=== PATIENT | female | born 1975 | race Caucasian/White ===

== ENCOUNTER 2018-03-09 10:22 | Inpatient (IN) | payer BC ==
[~2018-03-09] VITALS: Ht 154.9 cm; Wt 62.6 kg
[2018-03-09 10:22] VITALS: BP_SYST 142
[2018-03-09] MEDS ORDERED: NITROGLYCERIN 1 INCH (GM) OINT. TD ONE (10:45)
[2018-03-09 11:02] LABS: BASOPHILS # (AUTO) 0.1 K/uL (0.0-0.2); BASOPHILS % (AUTO) 1.3 % (0.0-2.0); EOSINOPHILS # (AUTO) 0.1 K/uL (0.0-0.4); EOSINOPHILS % (AUTO) 1.6 % (0.0-4.0); HEMATOCRIT 33.9 % (36-48); HEMOGLOBIN 11.3 g/dL (12.0-16.0); LYMPHOCYTES # (AUTO) 1.5 K/uL (1.0-5.5); LYMPHOCYTES % (AUTO) 33.5 % (20.5-51.5); MEAN CORPUSCULAR HEMOGLOBIN 30 pg (27-31); MEAN CORPUSCULAR HGB CONC 33 % (32-36); MEAN CORPUSCULAR VOLUME 89 fL (79.0-98.0); MONOCYTES # (AUTO) 0.2 K/uL (0.0-1.0); MONOCYTES % (AUTO) 5.2 % (1.7-9.3); NEUTROPHILS # (AUTO) 2.6 K/uL (1.8-7.7); NEUTROPHILS % (AUTO) 58.4 % (40.0-70.0); PLATELET COUNT (AUTO) 325 K/uL (130-430); RED CELL DISTRIBUTION WIDTH 12.3 % (9.0-15.0); WHITE BLOOD COUNT (AUTO) 4.5 K/uL (4.8-10.8)
[2018-03-09 11:10] LABS: PROTHROMBIN TIME 9.8 SECS (9.5-12.5)
[2018-03-09 11:12] LABS: ALBUMIN 3.6 g/dL (3.4-4.8); CALCIUM 8.9 mg/dL (8.4-11.0); CREATININE 0.53 mg/dL (0.55-1.30); POTASSIUM 3.8 mmol/L (3.5-5.1); TOTAL BILIRUBIN 0.2 mg/dL (0.0-1.0)
[2018-03-09] MEDS ORDERED: ACETAMINOPHEN 500 MG TABLET PO ONE (11:45)
[2018-03-09 14:35] VITALS: BP_SYST 126
[2018-03-09] MEDS ORDERED: MAG-AL HYDROX/SIMETH 30 ML UDC PO ONE (15:30)
[2018-03-09] MEDS ORDERED: PANTOPRAZOLE SODIUM 40 MG TAB PO ONE (15:30)
[2018-03-09] MEDS ORDERED: MAG-AL HYDROX/SIMETH 30 ML UDC PO PRN (15:30)
[2018-03-09] MEDS ORDERED: traMADol HCL HCL 50 MG TABLET (ULTRAM) PO PRN (15:45)
[2018-03-09 16:10] VITALS: BP_SYST 130
[2018-03-09 19:30] VITALS: BP_SYST 108
[2018-03-09] MEDS ORDERED: ONDANSETRON HCL 4 MG/2 ML VIAL IVP PRN (20:45)
[2018-03-09] MEDS ORDERED: ONDANSETRON HCL 4 MG/2 ML VIAL ONE (20:49)
[2018-03-10] VITALS: BP_SYST 110
[2018-03-10 06:45] LABS: BASOPHILS # (AUTO) 0.1 K/uL (0.0-0.2); BASOPHILS % (AUTO) 1.2 % (0.0-2.0); EOSINOPHILS # (AUTO) 0.1 K/uL (0.0-0.4); EOSINOPHILS % (AUTO) 0.7 % (0.0-4.0); HEMATOCRIT 31.7 % (36-48); HEMOGLOBIN 10.6 g/dL (12.0-16.0); LYMPHOCYTES # (AUTO) 1.8 K/uL (1.0-5.5); LYMPHOCYTES % (AUTO) 20.9 % (20.5-51.5); MEAN CORPUSCULAR HEMOGLOBIN 30 pg (27-31); MEAN CORPUSCULAR HGB CONC 33 % (32-36); MEAN CORPUSCULAR VOLUME 89 fL (79.0-98.0); MONOCYTES # (AUTO) 0.3 K/uL (0.0-1.0); MONOCYTES % (AUTO) 3.8 % (1.7-9.3); NEUTROPHILS # (AUTO) 6.3 K/uL (1.8-7.7); NEUTROPHILS % (AUTO) 73.4 % (40.0-70.0); PLATELET COUNT (AUTO) 293 K/uL (130-430); RED BLOOD CELL COUNT(AUTO) 3.57 MIL/uL (4.2-6.2); RED CELL DISTRIBUTION WIDTH 12.4 % (9.0-15.0); WHITE BLOOD COUNT (AUTO) 8.6 K/uL (4.8-10.8)
[2018-03-10 06:55] LABS: ANION GAP 3 (5-15); CALCIUM 8.8 mg/dL (8.4-11.0); CHLORIDE 105 mmol/L (98-107); GLUCOSE 92 mg/dL (70-99); POTASSIUM 3.8 mmol/L (3.5-5.1); SODIUM SERUM 140 mmol/L (136-145); UREA NITROGEN, BLOOD 9 mg/dL (8-21)
[2018-03-10 06:57] LABS: GFR AFRICAN AMERICAN 117 mL/min (>90)
[2018-03-10 07:09] LABS: ALANINE AMINOTRANSFERASE 22 U/L (12-78); ALBUMIN 3.4 g/dL (3.4-4.8); ASPARTATE AMINOTRANSFERASE 17 U/L (10-37); THYROID STIMULATING HORMONE 2.05 uIu/mL (0.36-3.74); TOTAL BILIRUBIN 0.4 mg/dL (0.0-1.0)
[2018-03-10 07:28] LABS: BILIRUBIN,URINE NEGATIVE (NEGATIVE); BLOOD, URINE NEGATIVE (NEGATIVE); CLARITY/URINE CLEAR (CLEAR); COLOR,URINE YELLOW (YELLOW); GLUCOSE,URINE NEGATIVE (NEGATIVE); KETONES,URINE NEGATIVE (NEGATIVE); LEUKOCYTE ESTERASE ,URINE NEGATIVE (NEGATIVE); NITRITE, URINE NEGATIVE (NEGATIVE); PROTEIN URINE TRACE (NEGATIVE)
[2018-03-10 07:37] LABS: CHOLESTEROL 179 mg/dL (<200); HDL CHOLESTEROL 53 mg/dL (>55); LDL CHOLESTEROL 115 mg/dL (<100); TRIGLYCERIDES 73 mg/dL (30-150)
[2018-03-10 07:46] VITALS: BP_SYST 95
[2018-03-10] MEDS ORDERED: PANTOPRAZOLE SODIUM 40 MG TAB PO SCH (09:00)
[2018-03-10 11:39] VITALS: BP_SYST 103
[2018-03-10] MEDS ORDERED: FAMO-132 PO (11:58)
[2018-03-10 12:42] VITALS: BP_SYST 103
== END 2018-03-10 15:10 | disposition home or self-care (01) | DRG 282 ==
LOC: SED 10:22 → STU 13:10
PROVIDERS: ADMIT Internal Medicine; ATTEND Internal Medicine
DX: I21.9 Acute myocardial infarction, unspecified (principal); G43.909 Migraine, unspecified, not intractable, without status migrainosus; F41.9 Anxiety disorder, unspecified; D50.0 Iron deficiency anemia secondary to blood loss (chronic); K21.9 Gastro-esophageal reflux disease without esophagitis; R07.89 Other chest pain; Z82.49 Family history of ischemic heart disease and other diseases of the circulatory system; Z88.6 Allergy status to analgesic agent; Z90.49 Acquired absence of other specified parts of digestive tract
CPT/HCPCS: 36415; 71045; 80053; 80061; 81003; 82550-TC; 83735-TC; 84443-TC; 84484; 84703; 85025; 85379; 85610-TC; 85730-TC; 93005; 93306; 99285; J2405